=== PATIENT | female | born 1975 | race Caucasian/White ===

== ENCOUNTER 2017-10-01 13:19 | Emergency (ER) | payer MEDICAID ==
[~2017-10-01] VITALS: Ht 165.1 cm; Wt 80.7 kg
[2017-10-01] MEDS ORDERED: IBUPROFEN 600 MG TAB PO ONE (13:45)
[2017-10-01] MEDS ORDERED: HYDROcodone-ACET 10/325MG TAB PO ONE (14:45)
[2017-10-01 14:50] VITALS: BP 136/101
== END 2017-10-01 14:50 | disposition home or self-care (01) ==
LOC: ER 13:19
DX: S82.255A Nondisplaced comminuted fracture of shaft of left tibia, initial encounter for closed fracture (principal); F17.210 Nicotine dependence, cigarettes, uncomplicated; W01.0XXA Fall on same level from slipping, tripping and stumbling without subsequent striking against object, initial encounter; Y93.89 Activity, other specified; Y92.090 Kitchen in other non-institutional residence as the place of occurrence of the external cause; Y99.8 Other external cause status
CPT/HCPCS: 29515; 73590